=== PATIENT | female | born 1985 ===

== ENCOUNTER 2017-12-07 05:46 | Day surgery (SDC) | payer BC, MEDICAID ==
[2017-10-26 06:50] VITALS: BMI 31.9
[2017-12-07] MEDS ORDERED: Propofol 10 mg/ml Inj (20 ML) ONE (07:28)
[2017-12-07] MEDS ORDERED: Lidocaine Hydrochloride 5 ML INJ ONE (07:31)
[2017-12-07] MEDS ORDERED: Lactated Ringer's 1,000 ML IV ONE (07:45)
[2017-12-07] MEDS ORDERED: Morphine 4 MG/ML VIAL ONE (07:58)
[2017-12-07] MEDS ORDERED: Midazolam 2 MG/2 ML VIAL ONE (07:58)
[2017-12-07] MEDS ORDERED: cefOXitin IV 1 gm in Dextrose 2 GM/100 ML BAG IVPB ONE (07:58)
[2017-12-07] MEDS ORDERED: HYDROmorphone 0.5 mg/0.5 ml ISec IVP PRN (08:24)
--- NOTE | 2017-12-07 08:25 | PCM.SURG1 ---
Surgeon's Initial Post Op Note - Surgeon's Notes Surgeon: dr avila Marketing Project Specialist: none Type of Anesthesia: General LMA Anesthesia Administered By: dr bowen Pre-Operative Diagnosis: 32 yr with menorrhagia/submusal fibroid Operative Findings: see the op reort Post-Operative Diagnosis: same with submusal fibroid Operation Performed: myasure, d&c, hysterscopy Specimen/Specimens Removed: ecc. emc. submusal fibroid Estimated Blood Loss: EBL {In ML}: 40 Blood Products Given: N/A Drains Used: No Drains Post-Op Condition: Good Date of Surgery/Procedure: 12/07/17 Time of Surgery/Procedure: 08:40
[2017-12-07] MEDS ORDERED: DiphenhydrAMINE 50 mg/ml Inj IVP PRN ×2 (08:26→09:49)
[2017-12-07 11:16] VITALS: RESP 18
[2017-12-07 12:46] VITALS: BP 112/71; PULSE 88; TEMP 98.3; O2SAT 99
--- NOTE | 2017-12-07 14:23 | OP ---
PROCEDURE DATE: 12/07/2017 PREOPERATIVE DIAGNOSES: A 32-year-old 2, para 2, with prolonged uterine bleeding and fibroid uterus. POSTOPERATIVE DIAGNOSES: A 32-year-old 2, para 2 with prolonged uterine bleeding and fibroid uterus. PROCEDURE PERFORMED: MyoSure, dilatation and curettage, and hysteroscopy. SURGEON: Reza Florian MD NUCLEAR OFFICER: None. TYPE OF ANESTHESIA: General anesthesia. ANESTHESIA ADMINISTERED BY: Zachery Sanchez MD ESTIMATED BLOOD LOSS: 40 mL and the deficit was 350 mL. COMPLICATIONS: None. DESCRIPTION OF PROCEDURE: After informed consent, the patient was brought to the operating room, placed on the table where general anesthesia was given. Once the anesthesia was given, the patient was prepped and draped in the normal sterile fashion. Examination found the uterus to be 8-week size. No pelvic or adnexal mass. Anterior lip of the cervix was grasped with a tenaculum, gentle dilatation of the cervix was done. After that, hysteroscope was introduced and found to be 5 submucosal fibroids found on the upper part of the uterus. fibroids were removed with the MyoSure. After that, sharp dilatation and curettage of anterior wang of the uterus was done and the ECC was sent to Pathology. Then the anterior lip of the cervix - the tenaculum site was bleeding, so a stitch was placed. After that, the tenaculum was removed. The deficit was 350 mL. The patient tolerated the procedure well. Lap, sponge and instrument counts were correct x2. The patient will be sent home on Motrin and Keflex. Reza Florian MD
== END 2017-12-07 12:10 | disposition home or self-care (01) ==
LOC: C.SDS 05:46
PROVIDERS: ATTEND Obstetrics & Gynecology
DX: D25.0 Submucous leiomyoma of uterus (principal); N92.0 Excessive and frequent menstruation with regular cycle
CPT/HCPCS: 58561; 88305; J0694; J1170; J1200; J1885; J2250; J2405; J2704; J3010; J7120

== ENCOUNTER 2018-04-12 05:54 | Inpatient (IN) | payer BC, OTHER ==
[2018-03-30 11:39] VITALS: BMI 30.8
[2018-04-12] MEDS ORDERED: Bupivacaine HCl 0.25% PF (30 ml) Inj ONE ×2 (07:13→07:14)
[2018-04-12] MEDS ORDERED: ceFAZolin 1 gm in NS 2 GM/200 ML BAG IVPB ONE (07:13)
[2018-04-12] MEDS ORDERED: Lidocaine/Epinephrine 1% 1:100000 10 ML IJ ONE (07:13)
[2018-04-12] MEDS ORDERED: Propofol 10 mg/ml Inj (20 ML) ONE ×2 (07:40→13:26)
[2018-04-12] MEDS ORDERED: Midazolam 2 MG/2 ML VIAL ONE (07:41)
[2018-04-12] MEDS ORDERED: Succinylcholine Chloride 20 mg/ml Syr (5 ml) IV ONE (09:46)
[2018-04-12] MEDS ORDERED: Rocuronium 10 mg/ml (5 ml) ONE (09:46)
[2018-04-12] MEDS ORDERED: HYDROmorphone 0.5 mg/0.5 ml ISec IVP PRN (10:57)
[2018-04-12] MEDS ORDERED: Lidocaine 4% (Laryng-O-Jet) Kit MM ONE (13:05)
--- NOTE | 2018-04-12 14:01 | PCM.SURG1 ---
Surgeon's Initial Post Op Note - Surgeon's Notes Surgeon: Dr. Avelar Rotary Drier Operator: Dr. Renetta Cabrera PGY2 Type of Anesthesia: General Endo Pre-Operative Diagnosis: Hiatal Hernia Operative Findings: See operative dictation Post-Operative Diagnosis: Hiatal Hernia Operation Performed: Hiatal Hernia Repair, TAP block Specimen/Specimens Removed: None Estimated Blood Loss: EBL {In ML}: 100 Blood Products Given: N/A Drains Used: Junior Post-Op Condition: Good Date of Surgery/Procedure: 04/12/18 Time of Surgery/Procedure: 14:00
[2018-04-12] MEDS ORDERED: Albuterol-Ipratrop 3 mg / 0.5 (3 ml) UD INH PRN (14:15)
[2018-04-12] MEDS ORDERED: Lactated Ringer's 1,000 ML IV ONE (15:21)
[2018-04-12 17:53] VITALS: RESP 20
[2018-04-12] MEDS: Sodium Chloride 0.9% 1,000 ML IV SCH (18:47)
[2018-04-12] MEDS: Sucralfate 1 gm/10 ml Oral Susp UD PO SCH ×2 (18:48→21:35)
[2018-04-12] MEDS: Acetaminophen/Codeine elixir 120-12mg/5ml PO PRN (21:43)
[2018-04-13] MEDS: Sodium Chloride 0.9% 1,000 ML IV SCH ×2 (01:02→07:12)
--- NOTE | 2018-04-13 04:06 | OP ---
PROCEDURE DATE: 04/12/2018 PREOPERATIVE DIAGNOSES: 1. Paraesophageal hernia. 2. Status post gastric band placement and removal. 3. Status post gastric sleeve for weight loss. POSTOPERATIVE DIAGNOSES: 1. Paraesophageal hernia. 2. Extensive postoperative adhesions of hiatus and the stomach tube to the liver and to the diaphragm as well as to the surrounding structures. PROCEDURES: 1. Robotic paraesophageal hernia repair with pledgets. 2. Robotic extensive lysis of adhesions. 3. Intraoperative EGD done by Dr. Alexander. SURGEON: Corona Avelar MD. CO-SURGEON: Dr. Benjamin Belcher. TYPE OF ANESTHESIA: General endotracheal tube anesthesia. ESTIMATED BLOOD LOSS: Around 100 mL. DRAINS: 19 German Junior drain was placed. COMPLICATIONS: None. INTRAOPERATIVE FINDINGS: The patient had extensive postoperative adhesions in the hiatus area as well as the paraesophageal hernia and the patient had adhesions from the stomach tube to the liver, stomach tube to the diaphragm, and to the surrounding structure. It took approximately 100 to 120 minute extra for the routine procedure and intraoperatively EGD suggestive of very small extra fundus of the stomach tube. DESCRIPTION OF PROCEDURE: On intraoperative steps, this is 32-year-old female, who was diagnosed with paraesophageal hernia and the patient was consented for robotic paraesophageal hernia repair with the mesh with possible open with possible EGD. The patient was brought to the OR, placed supine on the operating table. After induction of anesthesia, the abdomen was prepped and draped in the usual sterile fashion. A left upper quadrant incision was made. The peritoneal cavity was entered. The 5 robotic port was placed and the robot was brought in, camera arm as well as arm 1, arm 2 were docked and the patient found to have extensive adhesion of the stomach to the liver. With blunt and sharp dissection the lysis of adhesion was done. The stomach tube was attached to the left lobe of liver extremely firmly and the dissection was carried down up to the hiatus and the part of the procedure was converted to laparoscopy to complete the lysis of adhesion and the part of the liver was resected. After the lysis of adhesion, again the robot was brought in and now, the esophagus was identified and the dissection was carried down into the mediastinum and the esophagus was from the aorta and the posterior dissection was done upto the spine and vagus nerve was lifted up in a posterior dissection and now the Mansfield drain was placed and the esophageal lengthening was done upto 2 to 3 cm and now the hiatus was repaired with 0 silk interrupted suture with multiple pledgets. 52 German bougie was placed and the EGD was done. The EGD was done in the beginning of the case as well as in the middle and in the end of the case and bougies was passing without any difficulty and the air leak test was done just to make sure that there is no injury to the esophagus and after that a 19-German Junior drain was placed and proper hemostasis was achieved and the Pneumo was deflated. All the port sites was closed in 2 layers, subcu with a 2-0 Vicryl, skin with 4-0 Monocryl, and dry, sterile dressing was applied. The patient tolerated the procedure well. Count of instrument and gauze was correct. There was no apparent complication. Corona Avelar MD RENÉ
[2018-04-13] MEDS: Acetaminophen/Codeine elixir 120-12mg/5ml PO PRN (05:43)
[2018-04-13 07:43] LABS: BASO % 0.2 % (0.0-2.0); HEMOGLOBIN 10.2 g/dL (11.0-16.0); LYMPH # 1.4 K/uL (1.0-4.3); LYMPH % 15.1 % (20.0-40.0); MEAN CORPUSCULAR HEMOGLOBIN 40.8 pg (27.0-31.0); MONO # 0.6 K/uL (0.0-0.8); MONO % 6.4 % (0.0-10.0); NEUT # 7.4 K/uL (1.8-7.0); NEUT % 78.3 % (50.0-75.0); RBC 2.5 Mil/uL (3.80-5.20); RED CELL DISTRIBUTION WIDTH 19.2 % (11.5-14.5)
[2018-04-13 07:44] LABS: MEAN CELL VOLUME 116.8 fL (81.0-99.0); WHITE BLOOD COUNT 9.4 K/uL (4.8-10.8)
[2018-04-13 07:54] LABS: BLOOD UREA NITROGEN 7 mg/dL (7-17); CALCIUM 8.3 mg/dl (8.6-10.4); GFR AFRICAN-AMERICAN > 60; GFR NON-AFRICAN AMERICAN > 60
--- NOTE | 2018-04-13 09:00 | CP.PCM.PN ---
<MerchantYury - Last Filed: 04/13/18 09:01> Subjective - Date & Time of Evaluation Date of Evaluation: 04/13/18 Time of Evaluation: 06:35 - Subjective Subjective: General Surgery Patient seen and examined at bedside this AM. No acute events overnight. Appropriately tender around incision site. + nausea. Denies vomiting. NPO for now. encourage ambulation. Denies: chest pain, shortness of breath, fevers, chills, heart palpitations Objective - Vital Signs/Intake and Output Vital Signs (last 24 hours): Temp Pulse Resp BP Pulse Ox 98.5 F 76 20 109/71 96 04/13/18 08:04 04/13/18 08:04 04/13/18 08:04 04/13/18 08:04 04/13/18 08:04 Intake and Output: 04/13/18 04/13/18 06:59 18:59 Intake Total 1230 Output Total 1475 Balance -245 - Medications Medications: Current Medications Acetaminophen/Codeine Phosphate (Tylenol/Codeine Elixir) 5 ml PO Q6 PRN PRN Reason: Pain, moderate (4-7) Stop: 04/19/18 14:16 Last Admin: 04/13/18 05:43 Dose: 5 ml Hydrocodone Bitart/Acetaminophen (Vicodin 5 Mg-300 Mg) 1 tab PO Q4H PRN PRN Reason: Pain, moderate (4-7) Stop: 04/20/18 08:09 Albuterol/Ipratropium (Duoneb 3 Mg/0.5 Mg (3 Ml) Ud) 3 ml INH RQ2 PRN PRN Reason: Shortness of Breath Fentanyl (Fentanyl) 25 mcg IVP ONCE PRN PRN Reason: Pain, moderate (4-7) Last Admin: 04/12/18 15:15 Dose: 25 mcg Heparin Sodium (Porcine) (Heparin) 5,000 units SC Q8 MARIE Last Admin: 04/13/18 05:43 Dose: 5,000 units Sodium Chloride (Sodium Chloride 0.9%) 1,000 mls @ 100 mls/hr IV .Q10H MARIE Last Admin: 04/13/18 07:12 Dose: 100 mls/hr Ketorolac Tromethamine (Toradol) 30 mg IVP Q6 MARIE Stop: 04/15/18 06:01 Lidocaine (Lidoderm) 1 ea TD DAILY [facility] Ondansetron HCl (Zofran Inj) 4 mg IVP Q6 PRN PRN Reason: Nausea/Vomiting Pantoprazole Sodium (Protonix Inj) 40 mg IVP Q12H [facility] Last Admin: 04/13/18 01:18 Dose: 40 mg Sucralfate (Carafate Oral Susp) 1 gm PO QID [facility] Last Admin: 04/12/18 21:35 Dose: 1 gm - Labs Labs: 04/13/18 07:36 04/13/18 07:36 - Constitutional Appears: Non-toxic, No Acute Distress - Head Exam Head Exam: ATRAUMATIC - Eye Exam Eye Exam: EOMI. absent: Scleral icterus - ENT Exam ENT Exam: Mucous Membranes Moist - Respiratory Exam Respiratory Exam: NORMAL BREATHING PATTERN. absent: Accessory Muscle Use, Respiratory Distress - Cardiovascular Exam Cardiovascular Exam: +S1, +S2. absent: Bradycardia, Tachycardia - GI/Abdominal Exam GI & Abdominal Exam: Guarding (voluntary gurading), Soft, Tenderness (approp. tender around icision sites). absent: Firm, Rigid Additional comments: incisions clean dry intact - Neurological Exam Neurological Exam: Alert, Awake, Oriented x3 - Psychiatric Exam Psychiatric exam: Normal Affect - Skin Skin Exam: Intact, Warm Assessment and Plan - Assessment and Plan (Free Text) Assessment: 32F s/p Robotic hiatal hernia repair POD#1 Plan: - AM upper GI series - will advance to bariatric clears - pain control w/ marie toradol - anti-emetic PRN - encourage ambulation - Nutrition consult - monitor drain output - d/w Dr. Avelar and Dr[facility] <Corona Avelar B - Last Filed: 04/15/18 18:56> Objective - Vital Signs/Intake and Output Vital Signs (last 24 hours): Temp Pulse Resp BP Pulse Ox 98.5 F 79 20 121/85 98 04/15/18 15:00 04/15/18 15:00 04/15/18 15:00 04/15/18 15:00 04/15/18 15:00 Intake and Output: 04/15/18 04/15/18 06:59 18:59 Intake Total 960 500 Output Total 35 20 Balance 925 480 - Labs Labs: 04/13/18 07:36 04/13/18 07:36 Attending/Attestation - Attestation I have personally seen and examined this patient.: Yes I have fully participated in the care of the patient.: Yes I have reviewed all pertinent clinical information, including history, physical exam and plan: Yes Notes (Text): Pt was seen and examined at bedside Agree with above note and assessment Pt is improving clinically Upper GI series s/o no obstruction Clear liquie diet Plan d.w pt in detail Risk and benefit explained in detail.
[2018-04-13] MEDS: Hydrocodone/Acetaminophen 5 mg /300 mg Tab PO PRN ×3 (09:30→20:55)
[2018-04-13] MEDS: Lidocaine 5% Patch TD SCH (09:31)
[2018-04-13] MEDS: Sucralfate 1 gm/10 ml Oral Susp UD PO SCH ×4 (09:32→22:00)
[2018-04-13] MEDS ORDERED: Iohexol 240 200 ML ONE (11:30)
[2018-04-13] MEDS ORDERED: Barium Sulfate for Susp 96% w/w 176g Bottle PR ONE (11:36)
--- NOTE | 2018-04-13 12:55 | RAD ---
Limited upper GI series History: Hiatal hernia repair. Comparison: None available. Technique: Limited single contrast upper GI series was. Findings: Limited single contrast upper GI series was performed. Contrast flowed freely through the surgical site. No evidence of postsurgical leak. Impression: No evidence of postsurgical leak.
[2018-04-13] MEDS: Potassium Ch 20mEq in D5-1/2NS 1,000 ML IV SCH ×2 (13:50→22:28)
[2018-04-14] MEDS: Hydrocodone/Acetaminophen 5 mg /300 mg Tab PO PRN ×4 (02:44→21:16)
--- NOTE | 2018-04-14 07:51 | CP.PCM.PN ---
<Mickey Jackson - Last Filed: 04/14/18 07:48> Subjective - Date & Time of Evaluation Date of Evaluation: 04/14/18 Time of Evaluation: 07:48 - Subjective Subjective: General Surgery Progress Note for Dr. Alexander and Dr. Avelar This 32F was seen and examined this AM at bedside no acute events reported overnight. 90cc serosanguinous drainage from her junior drain over the post 24 hours. She reports she is tolerating small volume clears and that her pain is controlled well with her scheduled toradol. She denies any SOB or chest pain. Objective - Vital Signs/Intake and Output Vital Signs (last 24 hours): Temp Pulse Resp BP Pulse Ox 99 F 77 20 133/89 96 04/14/18 00:00 04/14/18 00:00 04/14/18 00:00 04/14/18 00:00 04/14/18 00:00 Intake and Output: 04/14/18 04/14/18 06:59 18:59 Intake Total 2090 Output Total 890 Balance 1200 - Medications Medications: Current Medications Acetaminophen/Codeine Phosphate (Tylenol/Codeine Elixir) 5 ml PO Q6 PRN PRN Reason: Pain, moderate (4-7) Stop: 04/19/18 14:16 Last Admin: 04/13/18 05:43 Dose: 5 ml Hydrocodone Bitart/Acetaminophen (Vicodin 5 Mg-300 Mg) 1 tab PO Q4H PRN PRN Reason: Pain, moderate (4-7) Stop: 04/20/18 08:09 Last Admin: 04/14/18 02:44 Dose: 1 tab Albuterol/Ipratropium (Duoneb 3 Mg/0.5 Mg (3 Ml) Ud) 3 ml INH RQ2 PRN PRN Reason: Shortness of Breath Fentanyl (Fentanyl) 25 mcg IVP ONCE PRN PRN Reason: Pain, moderate (4-7) Last Admin: 04/12/18 15:15 Dose: 25 mcg Heparin Sodium (Porcine) (Heparin) 5,000 units SC Q8 [facility] Last Admin: 04/14/18 06:09 Dose: 5,000 units Ketorolac Tromethamine (Toradol) 30 mg IVP Q6 [facility] Stop: 04/15/18 06:01 Last Admin: 04/14/18 06:08 Dose: 30 mg Lidocaine (Lidoderm) 1 ea TD DAILY [facility] Last Admin: 04/13/18 09:31 Dose: 1 ea Ondansetron HCl (Zofran Inj) 4 mg IVP Q6 PRN PRN Reason: Nausea/Vomiting Pantoprazole Sodium (Protonix Inj) 40 mg IVP Q12H [facility] Last Admin: 04/14/18 03:51 Dose: 40 mg Sucralfate (Carafate Oral Susp) 1 gm PO QID [facility] Last Admin: 04/13/18 22:00 Dose: 1 gm - Labs Labs: 04/13/18 07:36 04/13/18 07:36 - Constitutional Appears: Non-toxic, No Acute Distress - Head Exam Head Exam: ATRAUMATIC, NORMOCEPHALIC - Eye Exam Eye Exam: EOMI - ENT Exam ENT Exam: Mucous Membranes Moist - Respiratory Exam Respiratory Exam: NORMAL BREATHING PATTERN - Cardiovascular Exam Cardiovascular Exam: +S1, +S2 - GI/Abdominal Exam GI & Abdominal Exam: Soft. absent: Distended, Firm, Guarding, Rigid, Tenderness - Neurological Exam Neurological Exam: Alert, Awake - Psychiatric Exam Psychiatric exam: Normal Affect, Normal Mood - Skin Skin Exam: Dry, Intact Assessment and Plan - Assessment and Plan (Free Text) Assessment: This is a 32F who is POD#2 s/p Robotic Hiatal hernia repair Tolerating Clears Vital Signs Stable Junior Drain output 90cc serosanguinous drainage Follow up vitamin levels Out of bed DVT PPX Continue duonebs PRN D/W Dr. Benjamin Jackson PGY2 <Corona Avelar B - Last Filed: 04/15/18 18:57> Objective - Vital Signs/Intake and Output Vital Signs (last 24 hours): Temp Pulse Resp BP Pulse Ox 98.5 F 79 20 121/85 98 04/15/18 15:00 04/15/18 15:00 04/15/18 15:00 04/15/18 15:00 04/15/18 15:00 Intake and Output: 04/15/18 04/15/18 06:59 18:59 Intake Total 960 500 Output Total 35 20 Balance 925 480 - Labs Labs: 04/13/18 07:36 04/13/18 07:36 Attending/Attestation - Attestation I have fully participated in the care of the patient.: Yes I have reviewed all pertinent clinical information, including history, physical exam and plan: Yes Notes (Text): Pt can be DC home Drain removal f.u as out pt C.w full liquid and thick liquids at home Plan d.w pt in detail.
[2018-04-14] MEDS: Lidocaine 5% Patch TD SCH (10:08)
[2018-04-14] MEDS: Sucralfate 1 gm/10 ml Oral Susp UD PO SCH ×4 (10:08→21:15)
[2018-04-15] MEDS: Hydrocodone/Acetaminophen 5 mg /300 mg Tab PO PRN ×2 (03:56→09:00)
--- NOTE | 2018-04-15 07:43 | CP.PCM.DIS ---
Provider - Provider Date of Admission: 04/12/18 14:01 Attending physician: Corona Avelar MD Time Spent in preparation of Discharge (in minutes): 45 Hospital Course - Lab Results Lab Results: Most Recent Lab Values WBC 9.4 K/uL (4.8-10.8) D 04/13/18 07:36 RBC 2.50 Mil/uL (3.80-5.20) L 04/13/18 07:36 Hgb 10.2 g/dL (11.0-16.0) L 04/13/18 07:36 Hct 29.2 % (34.0-47.0) L 04/13/18 07:36 MCV 116.8 fL (81.0-99.0) H D 04/13/18 07:36 MCH 40.8 pg (27.0-31.0) H 04/13/18 07:36 MCHC 35.0 g/dL (33.0-37.0) 04/13/18 07:36 RDW 19.2 % (11.5-14.5) H 04/13/18 07:36 Plt Count 239 K/uL (130-400) 04/13/18 07:36 MPV 8.0 fL (7.2-11.7) 04/13/18 07:36 Neut % (Auto) 78.3 % (50.0-75.0) H 04/13/18 07:36 Lymph % (Auto) 15.1 % (20.0-40.0) L 04/13/18 07:36 [place]ward % (Auto) 6.4 % (0.0-10.0) 04/13/18 07:36 Eos % (Auto) 0.0 % (0.0-4.0) 04/13/18 07:36 Baso % (Auto) 0.2 % (0.0-2.0) 04/13/18 07:36 Neut # (Auto) 7.4 K/uL (1.8-7.0) H 04/13/18 07:36 Lymph # (Auto) 1.4 K/uL (1.0-4.3) 04/13/18 07:36 Woodward # (Auto) 0.6 K/uL (0.0-0.8) 04/13/18 07:36 Eos # (Auto) 0.0 K/uL (0.0-0.7) 04/13/18 07:36 Baso # (Auto) 0.0 K/uL (0.0-0.2) 04/13/18 07:36 Differential Comment 04/13/18 07:36 Sodium 141 mmol/L (132-148) 04/13/18 07:36 Potassium 3.8 mmol/L (3.6-5.2) 04/13/18 07:36 Chloride 106 mmol/L (98-107) 04/13/18 07:36 Carbon Dioxide 27 mmol/L (22-30) 04/13/18 07:36 Anion Gap 12 (10-20) 04/13/18 07:36 BUN 7 mg/dL (7-17) 04/13/18 07:36 Creatinine 0.5 mg/dL (0.7-1.2) L 04/13/18 07:36 Est GFR ( Amer) > 60 04/13/18 07:36 Est GFR (Non-Af Amer) > 60 04/13/18 07:36 Random Glucose 83 mg/dL (65-105) 04/13/18 07:36 Calcium 8.3 mg/dl (8.6-10.4) L 04/13/18 07:36 Iron 16 ug/dL (37-170) L 04/13/18 11:43 Ferritin 162.0 ng/mL 04/13/18 11:43 Triglycerides 107 mg/dL (0-149) 04/13/18 11:43 Cholesterol 129 mg/dL (0-199) 04/13/18 11:43 LDL Cholesterol Direct 38 mg/dL (0-129) 04/13/18 11:43 HDL Cholesterol 63 mg/dL (30-70) 04/13/18 11:43 Vitamin B12 581 pg/mL (239-931) 04/13/18 11:43 25-OH Vitamin D Total 19.3 NG/ML (30.0-100.0) L 04/13/18 11:43 - Hospital Course Hospital Course: 32 year old female who presented to [facility] for scheduled surgery for a Robotic ParaEsophageal hernia repair. Procedure was tolerated well and patient went to PACU in stable condition. Patient was admitted for routine observation post-operative. An upper GI series was performed which showed no strictures or leaks. Patient was advanced to bariatric clear diet, which was tolerated and subsequently advanced to full liquid diet and tolerated well. Pain was well controlled during hospital stay. Patient is stable and cleared for discharge home. Scheduled to follow up as an outpatient in 2-4 weeks after discharge Discharge Exam - Head Exam Head Exam: ATRAUMATIC, NORMOCEPHALIC - Eye Exam Eye Exam: EOMI. absent: Scleral icterus - Respiratory Exam Respiratory Exam: NORMAL BREATHING PATTERN. absent: Accessory Muscle Use, Respiratory Distress - Cardiovascular Exam Cardiovascular Exam: +S1, +S2. absent: Bradycardia, Tachycardia - GI/Abdominal Exam GI & Abdominal Exam: Soft, Tenderness (appropriately tender around incision). absent: Distended, Firm, Guarding, Rebound, Rigid - Neurological Exam Neurological exam: Alert, Oriented x3 - Skin Skin Exam: Intact, Warm Discharge Plan - Discharge Medications Prescriptions: Acetaminophen/Hydrocodone Bi [Vicodin 300 mg-5 mg] 1 tab PO Q6 PRN #30 tab PRN Reason: Pain, Moderate (4-7) Docusate [Colace] 100 mg PO BID 10 Days cap Ondansetron ODT [Zofran ODT] 4 mg PO Q6 PRN #20 odt PRN Reason: Nausea/Vomiting Pantoprazole [Protonix EC Tab] 40 mg PO DAILY 10 Days ect Sucralfate [Carafate] 1 gm PO DAILY 7 Days dose - Follow Up Plan Condition: GOOD Disposition: HOME/ ROUTINE Additional Instructions: Laparoscopic ParaEsophageal Hernia Repair What Should I Expect after Surgery? Patients are encouraged to engage in light activity while at home after surgery , and should avoid heavy lifting or strenuous activity for 3 weeks of time which will be determined by your surgeon. Post operative pain is generally mild although some patients may require prescription pain medication for a short period of time. Continue your anti-reflux medication You will be given the following Prescriptions at discharge - Anti-nausea medication to take as needed - Carafate liquid - take 4x daily - Narcotic pain medication -Stool softener medication to be taken while you are taking narcotics You should ask your surgeon about dietary restrictions immediately after the operation. - You were likely started on clear liquids while in the hospital. Once home, you can transition your diet to full liquids 2-3 days after surgery - remain on full liquids for the first 2 weeks - can transition to soft food diet thereafter You will probably be able to get back to your normal activities within a short amount of time. These activities include showering, driving, walking up stairs, lifting, working and engaging in sexual intercourse. Call and schedule a follow-up appointment within 2-4 weeks after your operation Referrals: Ye Alexander MD [Staff Provider] - 4 Weeks (follow up in 4 weeks in clinic Address: [address] [place] [address], [id number] Phone: [phone]) Corona Avelar MD [Staff Provider] -
[2018-04-15] MEDS: Sucralfate 1 gm/10 ml Oral Susp UD PO SCH ×2 (09:13→14:28)
[2018-04-15] MEDS: Lidocaine 5% Patch TD SCH (14:28)
[2018-04-15 15:46] VITALS: BP 121/85; PULSE 79; TEMP 98.5; O2SAT 98
== END 2018-04-15 16:45 | disposition home or self-care (01) | DRG 328 ==
LOC: C.SDS 05:54 → C.9S 14:01 → C.3T 17:30
PROVIDERS: ADMIT Surgery Surgical Critical Care; ATTEND Surgery Surgical Critical Care
PROC: 0DN64ZZ Release Stomach, Percutaneous Endoscopic Approach (ICD-10-PCS; 2018-04-12)
PROC: 0DJ08ZZ Inspection of Upper Intestinal Tract, Via Natural or Artificial Opening Endoscopic (ICD-10-PCS; 2018-04-12)
PROC: 8E0W4CZ Robotic Assisted Procedure of Trunk Region, Percutaneous Endoscopic Approach (ICD-10-PCS; 2018-04-12)
PROC: 0BQT4ZZ Repair Diaphragm, Percutaneous Endoscopic Approach (ICD-10-PCS; principal; 2018-04-12 07:30)
DX: K44.9 Diaphragmatic hernia without obstruction or gangrene (principal); Z98.84 Bariatric surgery status; K66.0 Peritoneal adhesions (postprocedural) (postinfection)